=== PATIENT | female | born 1990 | race Caucasian/White ===

== ENCOUNTER 2016-11-28 23:52 | Emergency (ER) | payer OTHER ==
[~2016-11-28] VITALS: Ht 165.1 cm; Wt 54.4 kg
== END 2016-11-29 02:00 | disposition home or self-care (01) ==
LOC: CED 23:52
DX: Z43.3 Encounter for attention to colostomy (principal); F17.210 Nicotine dependence, cigarettes, uncomplicated
CPT/HCPCS: 99282